=== PATIENT | male | born 1935 | race Caucasian/White ===

== ENCOUNTER 2016-06-30 15:30 | Outpatient (RCR) | payer MEDICARE, BC ==
[~2016-06-30 15:30] MED LIST: AMITRIPTYLINE H50 M1 PO; ANTIVERT 25MG25 MG PO; ATENOLOL25 MG PO; CIPRO 250MG TA250 MG PO; CLOPIDOGREL PO; HCTZ 25MG TAB25 MG PO; LORTAB 5/500 501 TAB PO; MELOXICAM PO; MULTIPLE VITAMI1 CAP PO; ONE DAILY MEN'S1 TAB PO; OSTEO-BI-FLEX 21 TAB PO; PLAVIX 75MG TAB75 MG PO; PRIL40; PROSCAR PO; PROTONIX 40MG T40 MG PO; TENORMIN 2525 MG/TAB PO; VALIUM 5MG T5 MG/TAB PO; VITAMIN D 400400 IU PO; ZOFRAN ODT4 MG PO; [UNRECOGNIZED DRUG - OTHER] PO
== END 2016-09-19 | disposition home or self-care (01) ==
LOC: MKS.ESL.PT
DX: M54.31 Sciatica, right side (principal)
CPT/HCPCS: G8978-GP; G8979-GP

== ENCOUNTER 2016-10-20 15:47 | Emergency (ER) | payer MEDICARE, BC ==
[2008-05-05 00:27] VITALS: BP 150/80
[~2016-10-20] VITALS: Ht 167.6 cm; Wt 83.6 kg
[2016-10-20 15:52] VITALS: TEMP 97.9
[2016-10-20] MEDS ORDERED: PRILOSEC 20MG20 MG PO (16:07)
[2016-10-20] MEDS ORDERED: OSTEO-BI-FLEX 21 TAB PO (16:08)
[2016-10-20 16:45] LABS: BASO # 0.1 (0.0-0.2); BASO % 1.2 % (0.0-2.0); EOS # 0.1 (0.0-0.7); GRAN # 4.3 (1.4-6.5); GRAN % 62.4 % (42.2-75.2); HEMATOCRIT 43.2 % (42.0-52.0); HEMOGLOBIN 14.6 g/dl (13.5-18.0); LYMPH % 28.2 % (20.0-51.0); MEAN CELL VOLUME 86 fl (80.0-100.0); MEAN CORPUSCULAR HEMOGLOBIN 29 pg (27.0-31.0); MEAN CORPUSCULAR HGB CONC 34 g/dl (33.0-37.0); MEAN PLATELET VOLUME 9.5 fl (7.4-10.4); MONO # 0.4 (0.1-0.6); MONO % 5.5 % (1.7-9.3); PLATELET COUNT 224 K/mm3 (130-400); RED BLOOD COUNT 5.01 M/mm3 (4.20-5.60); REDCELL DISTRIBUTION WIDTH-CV 13.8 % (11.5-14.5); WHITE BLOOD COUNT 6.9 K/mm3 (4.8-10.8)
[2016-10-20 16:49] LABS: INR 1.2 (0.8-3.0); PROTHROMBIN TIME 12.8 SECONDS (9.7-12.8)
[2016-10-20 16:59] LABS: CALCIUM 9.3 mg/dL (8.4-10.2); CREATININE, serum 0.89 mg/dL (0.66-1.25); POTASSIUM 4.4 mmol/L (3.4-5.0)
[2016-10-20 17:03] VITALS: BP 136/87
[2016-10-20 17:10] LABS: TROPONIN-I 0.019 ng/mL (0.000-0.034)
[2016-10-20 17:24] VITALS: PULSE 76
== END 2016-10-20 17:24 | disposition home or self-care (01) ==
LOC: COL.ER 15:47
PROVIDERS: Emergency Medicine
DX: R27.0 Ataxia, unspecified (principal); I10 Essential (primary) hypertension; Z86.73 Personal history of transient ischemic attack (TIA), and cerebral infarction without residual deficits; Z87.891 Personal history of nicotine dependence

== ENCOUNTER → 2016-11-02 | Outpatient (CLI) | payer MEDICARE, BC ==
[~2016-11-02] MED LIST changes: +PRILOSEC 20MG20 MG PO
== END ==
LOC: COL.VAS 08:49
DX: G31.89 Other specified degenerative diseases of nervous system (principal); I65.23 Occlusion and stenosis of bilateral carotid arteries
CPT/HCPCS: A9585

== ENCOUNTER → 2016-11-21 | Outpatient (CLI) | payer MEDICARE, BC | LOC: COL.RAD 11-18 14:00 | DX: I63.9 Cerebral infarction, unspecified (principal); G31.9 Degenerative disease of nervous system, unspecified; I67.82 Cerebral ischemia | CPT/HCPCS: Q9967 ==

== ENCOUNTER → 2016-11-25 | Outpatient (CLI) | payer MEDICARE, BC | LOC: COL.CARD 11-22 14:30 | DX: I49.1 Atrial premature depolarization (principal); I49.3 Ventricular premature depolarization; I63.9 Cerebral infarction, unspecified ==

== ENCOUNTER 2018-01-26 22:20 | Observation (INO) | payer MEDICARE, BC ==
[~2018-01-26] VITALS: Ht 167.6 cm; Wt 86.4 kg
[2018-01-26 22:50] LABS: BASO # 0.1 (0.0-0.2); BASO % 1.1 % (0.0-2.0); EOS # 0.4 (0.0-0.7); EOS % 4.1 % (0-4.0); GRAN # 4.3 (1.4-6.5); GRAN % 48.3 % (42.2-75.2); HEMATOCRIT 39.6 % (42.0-52.0); HEMOGLOBIN 13.2 g/dl (13.5-18.0); LYMPH # 3.4 (1.2-3.4); LYMPH % 37.6 % (20.0-51.0); MEAN CELL VOLUME 85 fl (80.0-100.0); MEAN CORPUSCULAR HEMOGLOBIN 28 pg (27.0-31.0); MEAN CORPUSCULAR HGB CONC 33 g/dl (33.0-37.0); MEAN PLATELET VOLUME 10.1 fl (7.4-10.4); MONO # 0.8 (0.1-0.6); MONO % 8.6 % (1.7-9.3); PLATELET COUNT 224 K/mm3 (130-400); RED BLOOD COUNT 4.66 M/mm3 (4.20-5.60); REDCELL DISTRIBUTION WIDTH-CV 14.6 % (11.5-14.5)
[2018-01-26 22:55] LABS: PROTHROMBIN TIME 11.6 SECONDS (9.7-12.8)
[2018-01-26 23:04] LABS: BILIRUBIN,TOTAL 0.3 mg/dL (0.0-1.0); C-REACTIVE PROTEIN 1.1 mg/dL (0.0-0.9); CALCIUM 8.7 mg/dL (8.4-10.2); CREATININE, serum 1.07 mg/dL (0.66-1.25); TOTAL PROTEIN 7.7 gm/dL (6.4-8.2)
[2018-01-26] MEDS ORDERED: SINEMET 25/101 UDTAB PO (23:12)
[2018-01-27 00:46] LABS: COLLECTION METHOD CLEAN CATCH
[2018-01-27 00:59] LABS: MUCOUS Present /lpf; URINE BACTERIA None Seen /hpf; URINE RBC 0-2 /hpf
[2018-01-27 01:09] LABS: PH 5 (5-8); URINE APPEARANCE Hazy; URINE BILIRUBIN Negative (NEGATIVE); URINE BLOOD Negative (NEGATIVE); URINE COLOR Yellow; URINE GLUCOSE Negative (NEGATIVE); URINE KETONE Trace (NEGATIVE); URINE LEUKOCYTE ESTERASE Trace (NEGATIVE); URINE NITRATE Negative (NEGATIVE); URINE PROTEIN(semi-quant) Negative (NEGATIVE); URINE UROBILINOGEN Negative (NEGATIVE)
[2018-01-27 04:07] VITALS: BP 125/58; PULSE 68; TEMP 97.9
[2018-01-27 07:30] LABS: CHOLESTEROL RISK RATIO 5.4
[2018-01-27 07:53] VITALS: BP 139/64; PULSE 66; TEMP 98.6
[2018-01-27 11:59] VITALS: BP 135/60; PULSE 67; TEMP 98.6
[2018-01-27 12:37] LABS: THYROXINE (T4)-TOTAL 5.5 ug/dL (5.5-11.0)
[2018-01-27 12:50] LABS: THYROID STIMULATING HORMONE 3.33 uIU/mL (0.465-4.680)
[2018-01-27 15:50] VITALS: BP 154/70; PULSE 72; TEMP 98.3
[2018-01-27 20:04] VITALS: BP 149/77; PULSE 72; TEMP 97.4
[2018-01-27 23:56] VITALS: BP 128/76; PULSE 90; TEMP 97.8
[2018-01-28 03:55] VITALS: BP 144/72; PULSE 61; TEMP 98
[2018-01-28 08:38] VITALS: BP 158/96; PULSE 84; TEMP 98.1
[2018-01-28] MEDS ORDERED: LIPITOR 10MG10 MG PO (11:12)
[2018-01-28 11:54] VITALS: BP 132/70; PULSE 65; TEMP 97.1
[2018-01-30 02:36] LABS: RPR (VDRL) Non-reactive (())
== END 2018-01-28 12:28 | disposition home or self-care (01) ==
LOC: COL.ER 22:20 → MEDICAL 01-27 01:54
PROVIDERS: Emergency Medicine; Family Medicine; Nurse Practitioner; Psychiatry & Neurology Neurology
DX: G45.9 Transient cerebral ischemic attack, unspecified (principal); R82.71 Bacteriuria; I10 Essential (primary) hypertension; N40.0 Benign prostatic hyperplasia without lower urinary tract symptoms; F32.9 Major depressive disorder, single episode, unspecified; G20 Parkinson's disease; K21.9 Gastro-esophageal reflux disease without esophagitis; I47.1 Supraventricular tachycardia; Z79.02 Long term (current) use of antithrombotics/antiplatelets; Z90.49 Acquired absence of other specified parts of digestive tract; Z88.0 Allergy status to penicillin; Z88.2 Allergy status to sulfonamides; Z88.6 Allergy status to analgesic agent; Z87.891 Personal history of nicotine dependence
CPT/HCPCS: A9585; G0378; G8978-GP; G8979-GP

== ENCOUNTER 2019-12-09 15:47 | Inpatient (IN) | payer MEDICARE, BC ==
[2019-12-09] VITALS (85 sets, daily range): BP systolic 141; BP diastolic 92; PULSE 108; TEMP 98.4; O2SAT 87–95
[~2019-12-09] VITALS: Ht 167.6 cm; Wt 87.1 kg
[~2019-12-09 15:47] MED LIST changes: +LIPITOR 10MG10 MG PO; +PROSCAR 5MG5 MG PO; -PROSCAR PO; +SINEMET 25/101 UDTAB PO
[2019-12-09 16:35] LABS: BASO # 0.1 (0.0-0.2); BASO % 0.8 % (0.0-2.0); EOS # 0.1 (0.0-0.7); EOS % 0.9 % (0-4.0); GRAN # 7.5 (1.4-6.5); GRAN % 62.6 % (42.2-75.2); HEMATOCRIT 40.8 % (42.0-52.0); LYMPH # 3.1 (1.2-3.4); LYMPH % 25.6 % (20.0-51.0); MEAN CELL VOLUME 93 fl (80.0-100.0); MEAN CORPUSCULAR HEMOGLOBIN 30 pg (27.0-31.0); MEAN CORPUSCULAR HGB CONC 32 g/dl (33.0-37.0); MEAN PLATELET VOLUME 10.4 fl (7.4-10.4); MONO # 1.1 (0.1-0.6); MONO % 9.5 % (1.7-9.3); PLATELET COUNT 216 K/mm3 (130-400); RED BLOOD COUNT 4.39 M/mm3 (4.20-5.60)
[2019-12-09 16:41] LABS: INR 1.2 (0.8-3.0)
[2019-12-09 16:44] LABS: PARTIAL THROMBOPLASTIN TIME 32.3 SECONDS (26.0-37.0)
[2019-12-09 18:16] LABS: ALBUMIN 4.6 gm/dL (3.5-5.0); BILIRUBIN,TOTAL 1.3 mg/dL (0.0-1.0); CALCIUM 9.7 mg/dL (8.4-10.2); CREATININE, serum 1.01 (0.66-1.25); POTASSIUM 4.5 mmol/L (3.4-5.0); TOTAL PROTEIN 8.9 gm/dL (6.4-8.2)
[2019-12-09 18:27] LABS: TROPONIN-I 0.034 ng/mL (0.000-0.035)
[2019-12-09] MEDS ORDERED: PRILOSEC 20MG20 MG PO (19:01)
[2019-12-09] MEDS ORDERED: LIPITOR20 MG PO (20:20)
[2019-12-09] MEDS ORDERED: ARICEPT10 MG PO (20:20)
--- NOTE | 2019-12-09 21:30 | NUR ---
PT ARRIVED TO UNIT AT 2100 VIA ER BED ACCOMPANIED BY LATOYA BERRY. PT STOOD AND TURNED TO GET INTO UNIT BED, WAS THEN ATTACHED TO CRM MONITOR. DR. ROB IN ROOM AT 2105 TO ASSESS PATIENT AND GO OVER POC. PT ORIENTED TO ROOM AND POC FOR THE EVENING, CALL LIGHT WITHIN REACH, BED ALARM ON.
[2019-12-10] VITALS (379 sets, daily range): BP systolic 123–163; BP diastolic 66–99; PULSE 99–130; TEMP 97.4–98.6; O2SAT 71–99
[2019-12-10 00:22] LABS: COLLECTION METHOD CLEAN CATCH
[2019-12-10 00:41] LABS: MUCOUS Present /lpf; PH 5 (5-8); URINE APPEARANCE Hazy; URINE BACTERIA Rare /hpf; URINE BILIRUBIN Negative (NEGATIVE); URINE BLOOD Negative (NEGATIVE); URINE COLOR Yellow; URINE GLUCOSE Negative (NEGATIVE); URINE KETONE Negative (NEGATIVE); URINE LEUKOCYTE ESTERASE Trace (NEGATIVE); URINE NITRATE Negative (NEGATIVE); URINE PROTEIN(semi-quant) Negative (NEGATIVE); URINE UROBILINOGEN Negative (NEGATIVE)
[2019-12-10 05:48] LABS: BASO # 0.1 (0.0-0.2); BASO % 0.7 % (0.0-2.0); EOS # 0.3 (0.0-0.7); EOS % 2.2 % (0-4.0); GRAN # 8.5 (1.4-6.5); GRAN % 66.1 % (42.2-75.2); HEMATOCRIT 38.7 % (42.0-52.0); HEMOGLOBIN 12.6 g/dl (13.5-18.0); LYMPH # 2.9 (1.2-3.4); LYMPH % 22.4 % (20.0-51.0); MEAN CELL VOLUME 92 fl (80.0-100.0); MEAN CORPUSCULAR HEMOGLOBIN 30 pg (27.0-31.0); MEAN CORPUSCULAR HGB CONC 33 g/dl (33.0-37.0); MEAN PLATELET VOLUME 10.3 fl (7.4-10.4); MONO # 1.1 (0.1-0.6); MONO % 8.1 % (1.7-9.3); PLATELET COUNT 216 K/mm3 (130-400); RED BLOOD COUNT 4.19 M/mm3 (4.20-5.60); REDCELL DISTRIBUTION WIDTH-CV 15.1 % (11.5-14.5)
[2019-12-10 05:58] LABS: ALBUMIN 4.3 gm/dL (3.5-5.0); BILIRUBIN,TOTAL 1.9 mg/dL (0.0-1.0); CALCIUM 8.8 mg/dL (8.4-10.2); CHOLESTEROL RISK RATIO 3.8; CREATININE, serum 0.87 (0.66-1.25); MAGNESIUM 1.8 mg/dL (1.6-2.3); POTASSIUM 4.2 mmol/L (3.4-5.0); TOTAL PROTEIN 8.6 gm/dL (6.4-8.2)
[2019-12-10 06:12] LABS: TROPONIN-I 0.052 ng/mL (0.000-0.035)
[2019-12-10 06:25] LABS: TSH w REFLEX 2.23 uIU/mL (0.465-4.680)
[2019-12-10 08:45] LABS: PARTIAL THROMBOPLASTIN TIME 42.4 SECONDS (26.0-37.0)
--- NOTE | 2019-12-10 09:33 | NUR ---
SHALA met with the patient to complete initial intake. The patient lives in [place] with his , Millie. The patient uses a walking stick when he walks outside and a cane when he uses the restroom at night. The patient is independent with ADLs. The patient's PCP was Dr. Garcia. Since Dr. Garcia left November 03 the patient is not sure who is taking over his care. The patient receives medications from [facility] with no difficulties. The patient does not have advanced directives in the EMR but states they are completed and at the bank. SHALA contacted the patient's PCP office to inquire about new provider. The patient's new PCP is Dr. Shantal Bañuelos. His first appointment is January 27 at 1:45pm. SHALA to inform the patient. SHALA will continue to monitor.
--- NOTE | 2019-12-10 13:57 | NUR ---
1200 Patient hesitant to go through with cardioversion today. Would like to talk to daughters first. Notified Keila RN with Dr. Urias. Told that we can schedule the procedure tomorrow and they will stop back by today to answer any questions or concerns. Notified anesthesiology and ultrasound; [place] [address]12/11/19. Patient agreeable to reschedule and discussed it with his . Patient currently resting in bed with IV infusing well and osorio draining to gravity. Denies any pain or discomfort, just states that he is "tired"
--- NOTE | 2019-12-10 19:10 | NUR ---
report received from LATOYA Thapa.
--- NOTE | 2019-12-10 19:45 | NUR ---
report given to LATOYA Sierra. care transfered.
--- NOTE | 2019-12-10 21:14 | NUR ---
Updated Infectious disease physician via telephone; no concerns at this time.
--- NOTE | 2019-12-10 22:25 | NUR ---
Patient maxed out on Cardizem since approximately 1744; HR continues to rest in the 120s, reaching 140s with repositioning. Patient is also tachypneic, breathing approximately 30 breaths per minute. He denies SOB or any pain or discomfort. He is otherwise resting quietly in bed watching television with no complaints. Notified hospitalist, Lynsey at 2144, who recommended I speak with cardiology. Attempted to page Dr. Urias via first call number at 2147, and when no callback received by 2099, attempted second call number with no response. Attempted second call number again at [phone], no answer. Continued to notify Lynsey that I was not able to reach Adonay; she is going to consult with Dr. Butt and get back to me. Will continue to monitor.
--- NOTE | 2019-12-10 22:33 | NUR ---
Lynsey spoke with Dr. Butt. According to Lynsey, Dr. Butt is okay with a HR in 130s and recommends that nursing staff continue to attempt contact with Dr. Urias for further orders.
--- NOTE | 2019-12-10 22:46 | NUR ---
Paged Dr. Urias a second time at [phone]. Dr. Urias called back at [phone]. Following patient update, recieved orders to administer 10mg Lasix IV now in addition to a 150mg bolus of Amiodarone and to initiate Amiodarone drip at 1mg/min. Dr. Urias specifically instructed to maintain drip at 1mg/min throughout NOC. To continue Cardizem drip and titrate down/off if appropriate. Repeated orders back to Dr. Urias prior to ending call.
[2019-12-11] VITALS (937 sets, daily range): BP systolic 108–168; BP diastolic 69–112; PULSE 60–126; TEMP 97.7–98.2; O2SAT 80–100
[2019-12-11 06:02] LABS: HEMATOCRIT 37.1 % (42.0-52.0); HEMOGLOBIN 12.4 g/dl (13.5-18.0); MEAN CELL VOLUME 90 fl (80.0-100.0); MEAN CORPUSCULAR HEMOGLOBIN 30 pg (27.0-31.0); MEAN CORPUSCULAR HGB CONC 33 g/dl (33.0-37.0); MEAN PLATELET VOLUME 10.7 fl (7.4-10.4); PLATELET COUNT 183 K/mm3 (130-400); RED BLOOD COUNT 4.12 M/mm3 (4.20-5.60); REDCELL DISTRIBUTION WIDTH-CV 14.6 % (11.5-14.5)
[2019-12-11 06:12] LABS: CALCIUM 8.3 mg/dL (8.4-10.2); CREATININE, serum 0.81 (0.66-1.25); MAGNESIUM 1.8 mg/dL (1.6-2.3); POTASSIUM 3.9 mmol/L (3.4-5.0)
--- NOTE | 2019-12-11 07:30 | NUR ---
Report recieved from LATOYA Robert. Patient wakes to voice and participates in report. All questions asked answered. Amiodarone running at 1mg/min and Cardizem running at 10mg/hr to uncomplicated LFA IV. Heparin at 14.5 ml/hr and NS at 75ml/hr running to uncomplicated RH IV. Patient with rate controlled afib per 5 lead. Care assumed at this time.
--- NOTE | 2019-12-11 09:40 | NUR ---
Bedside PHANI and cardioversion begins at this time. Dr. Mejía attends. VALERIE Fraga to sedate, this RN for monitoring and assistance.
--- NOTE | 2019-12-11 09:57 | NUR ---
AA completes care at this time and this RN resumes. Patient tolerated cardioversion without complication with 1 synced shock of 200joules applied with successful conversion to SR. Care ongoing.
--- NOTE | 2019-12-11 19:20 | NUR ---
RECEIVED REPORT FROM YELENA HENRY RN. PT SITTING UP IN BED WATCHING TV ON RA. CALL LIGHT WITHIN REACH. VSS. FC PATENT AND DRAINING TO GRAVITY.
[2019-12-12] VITALS (406 sets, daily range): BP systolic 127–162; BP diastolic 79–103; PULSE 79–92; TEMP 97.9–98.9; O2SAT 83–100
[2019-12-12 05:43] LABS: BASO # 0.1 (0.0-0.2); BASO % 0.7 % (0.0-2.0); EOS # 0.4 (0.0-0.7); EOS % 3.8 % (0-4.0); GRAN # 6.8 (1.4-6.5); GRAN % 65.2 % (42.2-75.2); HEMOGLOBIN 10.9 g/dl (13.5-18.0); LYMPH # 2.1 (1.2-3.4); LYMPH % 20.1 % (20.0-51.0); MEAN CELL VOLUME 92 fl (80.0-100.0); MEAN CORPUSCULAR HEMOGLOBIN 30 pg (27.0-31.0); MEAN CORPUSCULAR HGB CONC 32 g/dl (33.0-37.0); MEAN PLATELET VOLUME 10.2 fl (7.4-10.4); MONO % 9.5 % (1.7-9.3); PLATELET COUNT 203 K/mm3 (130-400); RED BLOOD COUNT 3.68 M/mm3 (4.20-5.60); REDCELL DISTRIBUTION WIDTH-CV 14.9 % (11.5-14.5)
[2019-12-12 05:48] LABS: HEMATOCRIT 33.8 % (42.0-52.0)
[2019-12-12 05:56] LABS: CALCIUM 8.3 mg/dL (8.4-10.2); CREATININE, serum 0.87 (0.66-1.25); POTASSIUM 3.6 mmol/L (3.4-5.0)
--- NOTE | 2019-12-12 09:06 | NUR ---
PT is recommending post acute rehab. SW met with the patient discuss Medicare.gov's list of post acute rehab facilities in [place]. The patient's first choice is [facility] [place] and second choice is [facility]. SW contacted the patient's , Millie to discuss these options. She was in agreeance. SW sent referrals. Will continue to follow.
--- NOTE | 2019-12-12 11:37 | NUR ---
Ann Marie with [facility] reports they can take the patient as soon as the Covid-19 test comes back. SHALA spoke with the patient's regarding the patient's care at home. She reports that up until Covid-19 closed down services at [facility], the patient attended the Parkinson's program. Since then, the patient and exercise to a CD for Parkinson's patients. She states they have joined [employer] for extra exercise. Will continue to monitor.
--- NOTE | 2019-12-12 15:23 | NUR ---
The patient's Covid-19 came back negative. SW contacted the patient's to update her. She will bring the patient clothes to the ED entrance later this day or in the AM. SHALA collaborated this with the patient's nurse.
--- NOTE | 2019-12-12 19:19 | NUR ---
REPORT GIVEN TO ONCOMING SHIFT. PATIENT IS SITTING UP IN BED JUST FINISHED SUPPER. CALL LIGHT IS WITHIN REACH
--- NOTE | 2019-12-12 20:00 | NUR ---
Shift report received from LATOYA Jack. At time of assessment, patient is awake in bed watching TV. He is alert and oriented with no complaints of pain and no appearance of edema. Heart sounds are normal/regular and lungs are clear. He swallows pills easily. No new concerns.
[2019-12-13] VITALS (9 sets, daily range): BP systolic 145–160; BP diastolic 74–85; PULSE 77–92; TEMP 98.3–98.6
--- NOTE | 2019-12-13 04:53 | NUR ---
Patient has had a restful night with no complaints of pain. He had one soft, formed, light brown bowel movement. No new concerns.
[2019-12-13 06:56] LABS: HEMOGLOBIN 11.5 g/dl (13.5-18.0); MEAN CELL VOLUME 91 fl (80.0-100.0); MEAN CORPUSCULAR HEMOGLOBIN 30 pg (27.0-31.0); MEAN CORPUSCULAR HGB CONC 33 g/dl (33.0-37.0); MEAN PLATELET VOLUME 10.5 fl (7.4-10.4); PLATELET COUNT 215 K/mm3 (130-400)
[2019-12-13 07:06] LABS: HEMATOCRIT 34.6 % (42.0-52.0)
--- NOTE | 2019-12-13 10:44 | NUR ---
Patient consent to loop recorder placement after Dr Mejía discussed the indication and process with him.
[2019-12-13] MEDS ORDERED: ELIQUIS 5MG PO (10:56)
[2019-12-13] MEDS ORDERED: COLACE 100100 MG/CAP PO (10:57)
[2019-12-13] MEDS ORDERED: MIRALAX510G PO (10:57)
--- NOTE | 2019-12-13 11:29 | NUR ---
Washburn Catherer discontinued as requested by Dr. Martinez.
[2019-12-13] MEDS ORDERED: PACERONE400 MG PO (13:36)
[2019-12-13] MEDS ORDERED: CEPHALEXIN500 M1 PO (13:39)
--- NOTE | 2019-12-13 13:57 | NUR ---
The patient's COVID results came back negative. SW faxed the results and updates to [facility]. Ann Marie, at [facility], reports that they are able to accept the patient. SHALA informed the patient and his , Millie, via phone. The patient is to discharge today, 12/12, to [facility] for a skilled stay. Transportation was scheduled at 1500, via [facility]. SHALA informed the patient, his RN, and the patient's (Millie) via phone. They were all agreeable to the time. SHALA also presented and read the IM form outloud to the patient. The patient verbalized understanding and gave SW approval to sign the form on his behalf. SHALA provided him with a copy. No additional needs at this time.
--- NOTE | 2019-12-13 14:37 | NUR ---
Dr Mejía Implanted loop recorder today. dressing is dry and intact.
--- NOTE | 2019-12-13 15:32 | NUR ---
Dr Mejía implanted loop recorder. Site is dry and intact. Patient was discharged to [facility]. Report was given to Nurse Leslee.
== END 2019-12-13 15:15 | disposition home or self-care (01) | DRG 260 ==
LOC: COL.ER 15:47 → IMCU 18:36 → ICU 12-10 20:06 → MEDICAL 12-12 16:56
PROVIDERS: Family Medicine; ADMIT Internal Medicine
PROC: 0JH632Z Insertion of Monitoring Device into Chest Subcutaneous Tissue and Fascia, Percutaneous Approach (ICD-10-PCS; principal; 2019-12-13)
DX: I48.92 Unspecified atrial flutter (principal); I21.A1 Myocardial infarction type 2; I50.32 Chronic diastolic (congestive) heart failure; N39.0 Urinary tract infection, site not specified; G20 Parkinson's disease; I11.0 Hypertensive heart disease with heart failure; Z66 Do not resuscitate; K21.9 Gastro-esophageal reflux disease without esophagitis; E78.5 Hyperlipidemia, unspecified; R73.9 Hyperglycemia, unspecified; R13.10 Dysphagia, unspecified; Z86.73 Personal history of transient ischemic attack (TIA), and cerebral infarction without residual deficits; Z88.0 Allergy status to penicillin; Z88.2 Allergy status to sulfonamides
CPT/HCPCS: 99223-AI; 99232-AI; 99233-AI; 99239; C1764; J0282; J0696; J1644; J1940; J2704; J7030; J7060

== ENCOUNTER 2020-06-23 15:51 | Emergency (ER) | payer MEDICARE, BC ==
[2008-05-05 00:27] VITALS: BP 150/80
[~2020-06-23] VITALS: Ht 167.6 cm; Wt 88.2 kg
[~2020-06-23 15:51] MED LIST changes: +ARICEPT10 MG PO; +CEPHALEXIN500 M1 PO; +COLACE 100100 MG/CAP PO; +ELIQUIS 5MG PO; +LIPITOR20 MG PO; +MIRALAX510G PO; +PACERONE400 MG PO
[2020-06-23 16:01] VITALS: TEMP 98.1
[2020-06-23 16:32] LABS: BASO # 0.1 (0.0-0.2); BASO % 1.5 % (0.0-2.0); EOS # 0.4 (0.0-0.7); EOS % 5.9 % (0-4.0); GRAN # 4.1 (1.4-6.5); GRAN % 56.8 % (42.2-75.2); HEMATOCRIT 36.3 % (42.0-52.0); HEMOGLOBIN 11.8 g/dl (13.5-18.0); LYMPH # 1.7 (1.2-3.4); LYMPH % 23.7 % (20.0-51.0); MEAN CELL VOLUME 90 fl (80.0-100.0); MEAN CORPUSCULAR HEMOGLOBIN 29 pg (27.0-31.0); MEAN CORPUSCULAR HGB CONC 33 g/dl (33.0-37.0); MEAN PLATELET VOLUME 9.9 fl (7.4-10.4); MONO # 0.8 (0.1-0.6); MONO % 11.7 % (1.7-9.3); PLATELET COUNT 242 K/mm3 (130-400); RED BLOOD COUNT 4.02 M/mm3 (4.20-5.60); REDCELL DISTRIBUTION WIDTH-CV 15.3 % (11.5-14.5)
[2020-06-23 16:44] LABS: ALBUMIN 4.4 gm/dL (3.5-5.0); BILIRUBIN,TOTAL 1.1 mg/dL (0.0-1.0); CALCIUM 9.7 mg/dL (8.4-10.2); CREATININE, serum 1.32 (0.66-1.25); POTASSIUM 4.6 mmol/L (3.4-5.0); TOTAL PROTEIN 9.2 gm/dL (6.4-8.2)
[2020-06-23 17:43] VITALS: BP 170/94; PULSE 60
== END 2020-06-23 17:45 | disposition home or self-care (01) ==
LOC: COL.ER 15:51
PROVIDERS: Family Medicine
DX: R31.9 Hematuria, unspecified (principal); I50.9 Heart failure, unspecified; I11.0 Hypertensive heart disease with heart failure; E78.5 Hyperlipidemia, unspecified; K21.9 Gastro-esophageal reflux disease without esophagitis; G20 Parkinson's disease; Z86.73 Personal history of transient ischemic attack (TIA), and cerebral infarction without residual deficits; Z90.49 Acquired absence of other specified parts of digestive tract; Z95.4 Presence of other heart-valve replacement; Z88.0 Allergy status to penicillin; Z88.2 Allergy status to sulfonamides; Z88.8 Allergy status to other drugs, medicaments and biological substances; Z79.01 Long term (current) use of anticoagulants; Z79.02 Long term (current) use of antithrombotics/antiplatelets

== ENCOUNTER 2022-07-20 06:52 | Emergency (ER) | payer MEDICARE, BC ==
[~2022-07-20] VITALS: Ht 167.6 cm; Wt 86.4 kg
[2022-07-20 07:18] LABS: BASO # 0.1 K/mm3 (0.0-0.2); BASO % 1.3 % (0.0-2.0); EOS # 0.3 K/mm3 (0.0-0.7); EOS % 3.7 % (0.0-4.0); GRAN # 4.7 K/mm3 (1.4-6.5); LYMPH % 15.1 % (20.0-51.0); MEAN CELL VOLUME 99 fl (80.0-100.0); MEAN CORPUSCULAR HGB CONC 32 g/dl (33.0-37.0); MEAN PLATELET VOLUME 11.7 fl (7.4-10.4); MONO # 0.8 K/mm3 (0.1-0.6); PLATELET COUNT 256 K/mm3 (130-400); REDCELL DISTRIBUTION WIDTH-CV 16.6 % (11.5-14.5)
[2022-07-20 07:20] LABS: HEMATOCRIT 25.8 % (42.0-52.0); HEMOGLOBIN 8.3 g/dl (13.5-18.0); MEAN CORPUSCULAR HEMOGLOBIN 32 pg (27-31)
[2022-07-20 07:43] LABS: ALBUMIN 3.8 gm/dL (3.4-4.8); ALKALINE PHOSPHATASE 61 U/L (40-150); ANION GAP 10 mmol/L (7-16); AST,SGOT 59 U/L (5-34); BLOOD UREA NITROGEN 16 mg/dL (8-26); CARBON DIOXIDE 24 mmol/L (23-31); CHLORIDE 103 mmol/L (98-107); CREATININE, serum 1.33 mg/dL (0.72-1.25); GLUCOSE 133 mg/dL (70-99); POTASSIUM 3.4 mmol/L (3.5-4.5); SODIUM 137 mmol/L (136-145); TOTAL PROTEIN 7.8 gm/dL (6.2-8.1)
[2022-07-20 07:44] LABS: ALANINE AMINOTRANSFERASE < 6 U/L (0-55); ALCOHOL(ethanol),MEDICAL < 10 mg/dL (0-10); SALICYLATE < 5.0 mg/dL (15.0-30.0)
[2022-07-20 07:52] LABS: COLLECTION METHOD CLEAN CATCH
[2022-07-20 08:13] LABS: MUCOUS Present (NOT PRESENT); SQUAMOUS EPITHELIAL 0-2 /hpf (0-10); URINE APPEARANCE Clear (CLEAR/HAZY); URINE BACTERIA None Seen /hpf (NONE SEEN); URINE COLOR Yellow (YELLOW); URINE RBC 20-50 /hpf (0-2)
[2022-07-20 08:14] LABS: URINE BLOOD Negative (NEGATIVE); URINE GLUCOSE Negative (NEGATIVE); URINE KETONE Negative (NEGATIVE); URINE NITRATE Negative (NEGATIVE); URINE PROTEIN(semi-quant) Negative (NEGATIVE)
[2022-07-20 08:16] LABS: TRICYCLIC ANTIDEPRESS URINE NEGATIVE
[2022-07-20 10:50] VITALS: TEMP 97.9
[2022-07-20 15:15] VITALS: BP 195/89; PULSE 80
== END 2022-07-20 15:15 | disposition home or self-care (01) ==
LOC: COL.ER 06:52
PROVIDERS: Emergency Medicine
DX: S61.511A Laceration without foreign body of right wrist, initial encounter (principal); S61.512A Laceration without foreign body of left wrist, initial encounter; D64.9 Anemia, unspecified; E87.6 Hypokalemia; R79.89 Other specified abnormal findings of blood chemistry; I11.0 Hypertensive heart disease with heart failure; I50.30 Unspecified diastolic (congestive) heart failure; X78.8XXA Intentional self-harm by other sharp object, initial encounter